=== PATIENT | male | born 1990 | race Caucasian/White ===

== ENCOUNTER 2020-08-07 03:29 | Emergency (ER) | payer MEDICAID, OTHER ==
[2020-08-07 04:19] LABS: BILIRUBIN,URINE NEGATIVE (NEGATIVE); GLUCOSE, URINE (UA) NEGATIVE (NEGATIVE); KETONES,URINE (UA) NEGATIVE (NEGATIVE); LEUKOCYTE ESTERASE, URINE TRACE (NEGATIVE); NITRITE,URINE NEGATIVE (NEGATIVE); OCCULT BLOOD,URINE NEGATIVE (NEGATIVE); PROTEIN,URINE NEGATIVE (NEGATIVE); UROBILINOGEN,URINE 0.2 (NORMAL) E.U./dL (NORMAL)
[2020-08-07] MEDS ORDERED: AZITHROMYCIN 250 MG TABLET PO STA (04:21)
[2020-08-07] MEDS ORDERED: cefTRIAXone 250 MG VIAL IM STA (04:21)
[2020-08-07] MEDS ORDERED: LIDOCAINE 1% 2 ML VIAL MC ONE (04:21)
[2020-08-07 04:23] LABS: CLARITY,URINE CLEAR (CLEAR)
--- NOTE | 2020-08-07 04:24 | ED Physician Documentation ---
History of Present Illness - Stated complaint Stated Complaint: M - Chief complaint Chief Complaint: General - History obtained from History obtained from: Patient - Additonal information Additional information: Patient comes emergency department complaining of white penile discharge for approximately the last week. He states that 1 of his sexual partners was recently treated for gonorrhea. The patient states he has been having random stinging around his urethral meatus and that it stings when he urinates. The patient denies abdominal pain or fevers. He states he is very healthy otherwise. He has not noticed any lesions on his genitalia. No other complaints at this time. Review of Systems Ten Systems: 10 systems reviewed and negative Constitutional: reports: Reviewed and negative Eyes: reports: Reviewed and negative Ears: reports: Reviewed and negative Nose: reports: Reviewed and negative Throat: reports: Reviewed and negative Cardiac: reports: Reviewed and negative Respiratory: reports: Reviewed and negative GI: reports: Reviewed and negative : reports: Dysuria, Discharge Skin: reports: Reviewed and negative Musculoskeletal: reports: Reviewed and negative Neurologic: reports: Reviewed and negative Psychiatric: reports: Reviewed and negative Endocrine: reports: Reviewed and negative Immunocompromised: reports: Reviewed and negative PD PAST MEDICAL HISTORY - Past Medical History Past Medical History: Yes Cardiovascular: None Respiratory: None Endocrine/Autoimmune: None GI: Ulcers : Other HEENT: None Psych: None Musculoskeletal: None Derm: None Other Past Medical History: Hx of STD, chlamydia? - Past Surgical History Past Surgical History: Yes Ortho: Amputation - Present Medications Home Medications: Ambulatory Orders Medication Instructions Recorded Confirmed No Known Home Medications 02/15/15 08/07/20 - Allergies Allergies/Adverse Reactions: Allergies Allergy/AdvReac Type Severity Reaction Status Date / Time No Known Drug Allergies Allergy Verified 08/07/20 03:47 - Social History Does the pt smoke?: No Smoking Status: Former smoker Does the pt drink ETOH?: No Does the pt have substance abuse?: Yes - Immunizations Immunizations are current?: Yes - POLST Patient has POLST: No PD ED PE NORMAL - Vitals Vital signs reviewed: Yes - General General: Alert and oriented X 3, No acute distress - HEENT HEENT: Atraumatic, PERRL, Moist mucous membranes - Neck Neck: Supple, no meningeal sign - Respiratory Respiratory: No respiratory distress - Abdomen Abdomen: Soft, Non tender, Non distended - Male Male : Other (Mild amount of whitish, milky discharge noted from urethral meatus. Patient is circumcised. Normal male genitalia without lesions, discoloration, or other skin changes. Very mild excoriation/desquamation immediately surrounding the urethral meatus.) - Derm Derm: Warm and dry - Extremities Extremities: No deformity - Neuro Neuro: Alert and oriented X 3 - Psych Psych: Normal mood, Normal affect Results - Vitals Vitals: Vital Signs - 24 hr 08/07/20 03:35 Temperature 36.9 C Heart Rate 106 H Respiratory 16 Rate Blood Pressure 131/80 H O2 Saturation 100 Oxygen O2 Source Room air PD MEDICAL DECISION MAKING - ED course Complexity details: reviewed results, re-evaluated patient, considered differential, d/w patient ED course: I discussed with the patient that we will not have the GC chlamydia results back tonight; however, given the patient's girlfriend has recently been treated for gonorrhea, I feel the patient should be treated presumptively for this and chlamydia. Patient is given 250 mg of Rocephin IM and Zithromax 1000 mg p.o. Urinalysis has been performed and is unremarkable. The patient has been counseled not to have sexual relations with any of his partners for the next several days. Departure - Departure Disposition: 01 Home, Self Care Clinical Impression: Urethritis Condition: Stable Instructions: ED STD Male Treated Comments: You have been treated for gonorrhea and chlamydia today. Most likely, given the recent gonorrhea and sexual partner, this is what is causing her symptoms. Swab testing has been done and the results of this should be back in about 48 hours. In the meantime, you should not have sexual relations with any of your partners for at least the next several days. Otherwise, they could be an danger of infection or reinfection from you.
[2020-08-07 04:30] LABS: BACTERIA,URINE Rare /HPF (None Seen); RBC,URINE None Seen /HPF (0-5); SQUAMOUS EPITHELIAL CELL,UR RARE Squamous (<= Few)
[2020-08-07 05:11] VITALS: BP 127/73
== END 2020-08-07 05:11 | disposition home or self-care (01) ==
LOC: ED 03:29
DX: A54.01 Gonococcal cystitis and urethritis, unspecified (principal); Z87.891 Personal history of nicotine dependence
CPT/HCPCS: 81001; 87086; 87491; 87591; 96372; 99283; 99284; A9270; 81003; 87661

== ENCOUNTER 2023-04-04 11:02 | Emergency (ER) | payer OTHER ==
[2023-04-04 11:37] LABS: BASOPHILS % (AUTO) 0.4 %; EOSINOPHILS # (AUTO) 0.1 10^3/uL (0.0-0.7); EOSINOPHILS % (AUTO) 1.3 %; HCT - HEMATOCRIT 44.6 % (42.0-52.0); HGB - HEMOGLOBIN 14.7 g/dL (14.0-18.0); LYMPHOCYTES # (AUTO) 1.4 10^3/uL (1.5-3.5); LYMPHOCYTES % (AUTO) 19.2 %; MEAN CORPUSCULAR HEMOGLOBIN 28.9 pg (27.0-31.0); MEAN CORPUSCULAR VOLUME 87.8 fL (80.0-94.0); MEAN PLATELET VOLUME 8.9 fL (7.4-11.4); MONOCYTES # (AUTO) 0.6 10^3/uL (0.0-1.0); NEUTROPHILS # (AUTO) 5.1 10^3/uL (1.5-6.6); PLT - PLATELET COUNT 289 10^3/uL (130-450); RED BLOOD COUNT 5.08 10^6/uL (4.70-6.10); RED CELL DISTRIBUTION WIDTH 12.9 % (12.0-15.0); WHITE BLOOD COUNT 7.1 x10^3/uL (4.8-10.8)
[2023-04-04 11:49] LABS: ALBUMIN 4.2 g/dL (3.2-5.5); ALBUMIN/GLOBULIN RATIO 1.4 (1.0-2.2); BILIRUBIN,TOTAL 0.6 mg/dL (0.2-1.0); POTASSIUM 3.8 mmol/L (3.5-5.0); TOTAL PROTEIN 7.3 g/dL (6.7-8.2)
[2023-04-04 12:12] LABS: BILIRUBIN,URINE NEGATIVE (NEGATIVE); CLARITY,URINE CLEAR (CLEAR); GLUCOSE, URINE (UA) NEGATIVE (NEGATIVE); KETONES,URINE (UA) NEGATIVE (NEGATIVE); LEUKOCYTE ESTERASE, URINE NEGATIVE (NEGATIVE); NITRITE,URINE NEGATIVE (NEGATIVE); OCCULT BLOOD,URINE NEGATIVE (NEGATIVE); PROTEIN,URINE NEGATIVE (NEGATIVE); UROBILINOGEN,URINE 1 (NORMAL) E.U./dL (NORMAL)
[2023-04-04] MEDS ORDERED: SUCRALFATE 1 GM/10 ML UDC PO STA (12:25)
[2023-04-04] MEDS ORDERED: MAG HYDROX/AL HYDROX/SIMETH 30 ML UDC PO STA (12:25)
[2023-04-04] MEDS ORDERED: MORPHINE 2 MG/ML CARPUJECT IVP STA (12:25)
[2023-04-04] MEDS ORDERED: FAMOTIDINE 20 MG TABLET PO STA (12:25)
[2023-04-04] MEDS ORDERED: DROPERIDOL 5 MG/2 ML VIAL IVP STA (12:29)
--- NOTE | 2023-04-04 12:32 | ED Physician Documentation ---
PD HPI ABD PAIN - Stated complaint Stated Complaint: STOMACH PX, - Chief complaint Chief Complaint: Abd Pain - History obtained from History obtained from: Patient - History of Present Illness Timing - onset: Yesterday Timing - duration: Days (2) Timing - details: Gradual onset Pain level max: 8 Pain level now: 8 Quality: Aching, Pain Location: Epigastric Radiation: No: Chest, , Lower back, Left flank, Left shoulder, Right flank, Right shoulder, Upper back Improved by: Other (nothing) Worsened by: Eating Associated symptoms: Nausea. No: Fever, Vomiting, Hematemesis, Diarrhea, Constipation, Melena, Hematochezia, Dysuria, Hematuria, Chest pain, Dizzy Recently seen: Not recently seen Review of Systems Constitutional: denies: Fever, Chills GI: denies: Vomiting, Diarrhea, Hematemesis : denies: Dysuria, Frequency, Hesitancy Skin: denies: Rash Musculoskeletal: denies: Neck pain, Back pain Neurologic: denies: Headache PD PAST MEDICAL HISTORY - Past Medical History Cardiovascular: None Respiratory: None Endocrine/Autoimmune: None GI: Ulcers : Other HEENT: None Psych: None Musculoskeletal: None Derm: None - Past Surgical History Past Surgical History: Yes Ortho: Amputation - Present Medications Home Medications: Ambulatory Orders Medication Instructions Recorded Confirmed Esomeprazole Magnesium [Nexium] 40 mg PO DAILY #30 cap 04/04/23 Famotidine [Pepcid] 20 mg PO BID #60 tablet 04/04/23 Ondansetron Odt [Zofran] 4 mg TL Q6H PRN #10 tablet 04/04/23 - Allergies Allergies/Adverse Reactions: Allergies Allergy/AdvReac Type Severity Reaction Status Date / Time No Known Drug Allergies Allergy Verified 04/04/23 11:13 - Social History Does the pt smoke?: No Smoking Status: Former smoker Does the pt drink ETOH?: No Does the pt have substance abuse?: Yes - Immunizations Immunizations are current?: Yes - POLST Patient has POLST: No PD ED PE NORMAL - Vitals Vital signs reviewed: Yes - General General: Alert and oriented X 3, No acute distress - HEENT HEENT: Moist mucous membranes - Neck Neck: Supple, no meningeal sign - Cardiac Cardiac: RRR, Strong equal pulses - Respiratory Respiratory: No respiratory distress, Clear bilaterally - Abdomen Abdomen: Soft, Non distended, Other (TTP epigastric without peritoneal) - Back Back: No CVA TTP, No spinal TTP - Derm Derm: Warm and dry, No rash - Extremities Extremities: No edema - Neuro Neuro: Alert and oriented X 3 - Psych Psych: Normal mood, Normal affect Results - Vitals Vitals: Vital Signs - 24 hr 04/04/23 04/04/23 04/04/23 11:13 12:58 14:00 Temperature 36.4 C L Heart Rate 70 66 72 Respiratory 18 15 13 Rate Blood Pressure 142/97 H 133/92 H 124/79 O2 Saturation 100 99 98 04/04/23 16:07 Temperature Heart Rate 82 Respiratory 10 L Rate Blood Pressure 129/91 H O2 Saturation 99 Oxygen O2 Source Room air - Labs Labs: Laboratory Tests 04/04/23 04/04/23 04/04/23 11:28 11:29 11:29 WBC 7.1 RBC 5.08 Hgb 14.7 Hct 44.6 MCV 87.8 MCH 28.9 MCHC 33.0 RDW 12.9 Plt Count 289 MPV 8.9 Neut # (Auto) 5.1 Lymph # (Auto) 1.4 L [place] # (Auto) 0.6 Eos # (Auto) 0.1 Baso # (Auto) 0.0 Absolute Nucleated RBC 0.00 Nucleated RBC % 0.0 Sodium 140 Potassium 3.8 Chloride 103 Carbon Dioxide 30 Anion Gap 7.0 BUN 11 Creatinine 1.0 Estimated GFR (MDRD) 86 L Glucose 111 H Calcium 9.0 Total Bilirubin 0.6 AST 18 ALT 18 Alkaline Phosphatase 64 Total Protein 7.3 Albumin 4.2 Globulin 3.1 Albumin/Globulin Ratio 1.4 Lipase 59 H Urine Color YELLOW Urine Clarity CLEAR Urine pH 7.0 Ur Specific [place] 1.015 Urine Protein NEGATIVE Urine Glucose (UA) NEGATIVE Urine Ketones NEGATIVE Urine Occult Blood NEGATIVE Urine Nitrite NEGATIVE Urine Bilirubin NEGATIVE Urine Urobilinogen 1 (NORMAL) Ur Leukocyte Esterase NEGATIVE Ur Microscopic Review NOT INDICATED Urine Culture Comments NOT INDICATED - Rads (name of study) CT abd/pelvis Relevant Findings:: Final report received, See rad report PD Medical Decision Making - ED course Complexity details: reviewed results, re-evaluated patient, considered differential, d/w patient ED course: 33-year-old male with epigastric abdominal pain. Likely gastritis, possible an early gastroenteritis. He was given IV morphine, Pepcid, Maalox and Carafate. Also given a dose of droperidol. Symptoms fully resolved. Tolerating p.o. without difficulty. No acute findings on CT scan. CBC and ER abdominal panel did not show any significant abnormalities. We will have the patient follow-up with his PCP for further care. Will place on a PPI, H2 sindy for home. We will also prescribe Zofran for home. Patient counseled regarding signs and symptoms for which I believe and urgent re-evaluation would be necessary. Patient with good understanding of and agreement to plan and is comfortable going home at this time This document was made in part using voice recognition software. While efforts are made to proofread this document, sound alike and grammatical errors may occur. IMPRESSION: 1. No acute intra-abdominal findings. The appendix is not visualized; however there are no ancillary findings to suggest acute appendicitis. 2. Somewhat limited study secondary to motion artifact and streak artifact. Departure - Departure Disposition: Home, Self Care Clinical Impression: Abdominal pain Qualifiers: Abdominal location: epigastric Qualified Code(s): R10.13 - Epigastric pain Condition: Good Instructions: ED PUD Vs Gastritis, ED Abdominal Pain Unkn Cause Male Follow-Up: your,doctor in 1week [Other] Prescriptions: Esomeprazole Magnesium [Nexium] 40 mg PO DAILY #30 cap Famotidine [Pepcid] 20 mg PO BID #60 tablet Ondansetron Odt [Zofran] 4 mg TL Q6H PRN #10 tablet PRN Reason: Nausea / Vomiting Comments: Your prescriptions were sent to [facility] in [place]. Please eat a very bland diet. Drink plenty of fluids, avoid coffee, alcohol, energy drinks as this may irritate your stomach as well. Your CT scan and laboratory testing did not show any acute abnormalities today. Please return if you worsen. Discharge Date/Time: 04/04/23 16:19
[2023-04-04] MEDS ORDERED: iohexoL-300 100 ML VIAL ONE (12:48)
--- NOTE | 2023-04-04 15:06 | CT Report ---
PROCEDURE: ABDOMEN/PELVIS W INDICATIONS: epigastric abd pain CONTRAST: 100ml Omnipaque 300 TECHNIQUE: After the administration of intravenous contrast, 5 mm thick sections acquired from the diaphragms to the symphysis. 5 mm thick coronal and sagittal reformats were acquired. For radiation dose reducti on, the following was used: automated exposure control, adjustment of mA and/or kV according to funmi ent size. COMPARISON: FINDINGS: Image quality: Motion artifact and streak artifact from metallic jewelry on the bilateral wrists limi ts evaluation. Lung bases and heart: Unremarkable. Liver: No solid mass. Gallbladder and biliary tree: Unremarkable. Spleen: No splenomegaly. Pancreas: No pancreatic ductal dilation. Adrenals: No adrenal nodule. Kidneys and ureters: No hydronephrosis. No renal cystic lesion which requires follow up. No solid mas s. Bowel and peritoneum: No bowel distension. No pathologic free fluid. The appendix is not visualized; however there is no discrete right lower quadrant fluid or fat stranding to suggest acute appendiciti s. Lymph nodes: No central or retroperitoneal adenopathy. Vessels: No infrarenal aortic aneurysm. PELVIS Reproductive organs: Unremarkable. Bladder: No abnormal wall thickening, accounting for underdistension. Pelvic lymph nodes: No pelvic adenopathy by size criteria. Bones: No aggressive osseous abnormality. Other: No significant ventral or inguinal hernia. IMPRESSION: 1. No acute intra-abdominal findings. The appendix is not visualized; however there are no ancillary findings to suggest acute appendicitis. 2. Somewhat limited study secondary to motion artifact and streak artifact. Reviewed by: Taylor Rooney MD on 04/04/2023 3:05 PM PDT Approved by: Taylor Rooney MD on 04/04/2023 3:05 PM PDT Station ID: [id number]
[2023-04-04 16:08] VITALS: BP 129/91
[2023-04-04] MEDS ORDERED: iohexoL-300 100 ML VIAL IVP ONE (16:48)
== END 2023-04-04 16:19 | disposition home or self-care (01) ==
LOC: ED 11:02
DX: R10.13 Epigastric pain (principal); Z87.891 Personal history of nicotine dependence
CPT/HCPCS: 36415; 74177; 80053; 81003; 83690; 85025; 96374; 96375; 99284; A9270; Q9967; 81001; 87086

== ENCOUNTER 2024-04-01 14:23 | Emergency (ER) | payer OTHER ==
[2024-04-01 15:10] LABS: BASOPHILS % (AUTO) 0.5 %; EOSINOPHILS # (AUTO) 0.1 10^3/uL (0.0-0.7); EOSINOPHILS % (AUTO) 0.8 %; HCT - HEMATOCRIT 50.8 % (42.0-52.0); HGB - HEMOGLOBIN 16.4 g/dL (14.0-18.0); LYMPHOCYTES # (AUTO) 0.6 10^3/uL (1.5-3.5); MEAN CORPUSCULAR HEMOGLOBIN 28.4 pg (27.0-31.0); MEAN CORPUSCULAR HGB CONC 32.3 g/dL (32.0-36.0); MEAN CORPUSCULAR VOLUME 87.9 fL (80.0-94.0); MEAN PLATELET VOLUME 9.1 fL (7.4-11.4); MONOCYTES # (AUTO) 0.7 10^3/uL (0.0-1.0); MONOCYTES % (AUTO) 7.6 %; NEUTROPHILS # (AUTO) 7.5 10^3/uL (1.5-6.6); NEUTROPHILS % (AUTO) 83.9 %; PLT - PLATELET COUNT 277 10^3/uL (130-450); RED BLOOD COUNT 5.78 10^6/uL (4.70-6.10); RED CELL DISTRIBUTION WIDTH 13.2 % (12.0-15.0); WHITE BLOOD COUNT 8.9 x10^3/uL (4.8-10.8)
[2024-04-01 15:17] LABS: ALBUMIN 4.9 g/dL (3.2-5.5); ALBUMIN/GLOBULIN RATIO 1.8 (1.0-2.2); ALKALINE PHOSPHATASE 59 IU/L (42-121); ALT ALANINE AMINOTRANSFERASE 15 IU/L (10-60); AST ASPARTATE AMINOTRANSFERASE 17 IU/L (10-42); BUN - BLOOD UREA NITROGEN 24 mg/dL (6-20); CALCIUM 9.9 mg/dL (8.5-10.3); CARBON DIOXIDE - CO2 30 mmol/L (21-32); CHLORIDE 100 mmol/L (101-111); CREATININE 1.2 mg/dL (0.6-1.3); GFR - MDRD 69 (>89); GLUCOSE 132 mg/dL (74-104); LIPASE < 10 U/L (11-82); POTASSIUM 4.3 mmol/L (3.5-4.5); SODIUM 137 mmol/L (135-145); TOTAL PROTEIN 7.7 g/dL (6.4-8.9)
[2024-04-01 18:48] VITALS: BP 127/91; O2SAT 98
--- NOTE | 2024-04-01 18:52 | ED Physician Documentation ---
PD HPI ABD PAIN - Stated complaint Stated Complaint: STOMACH PX/SHAKING - Chief complaint Chief Complaint: Abd Pain - Additional information Additional information: 34-year-old male presents emerged department for abdominal pain that started this morning. Patient says that he had spontaneous sudden onset abdominal pain he describes as all over and he says now that he just has pain all over his body difficult gathering history. 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 Unsure if he send any recent fevers chills no nausea or vomiting. PD PAST MEDICAL HISTORY - Past Medical History Cardiovascular: None Respiratory: None Endocrine/Autoimmune: None GI: Ulcers : Other HEENT: None Psych: None Musculoskeletal: None Derm: None - Past Surgical History Past Surgical History: Yes Ortho: Amputation - Present Medications Home Medications: Ambulatory Orders Medication Instructions Recorded Confirmed Esomeprazole Magnesium [Nexium] 40 mg PO DAILY #30 cap 04/04/23 Famotidine [Pepcid] 20 mg PO BID #60 tablet 04/04/23 Ondansetron Odt [Zofran] 4 mg TL Q6H PRN #10 tablet 04/04/23 - Allergies Allergies/Adverse Reactions: Allergies Allergy/AdvReac Type Severity Reaction Status Date / Time No Known Drug Allergies Allergy Verified 04/01/24 14:40 - Social History Does the pt smoke?: No Smoking Status: Never smoker Does the pt drink ETOH?: No Does the pt have substance abuse?: Yes - Immunizations Immunizations are current?: Yes - POLST Patient has POLST: No PD ED PE NORMAL - Vitals Vital signs reviewed: Yes - General General: Alert and oriented X 3 - HEENT HEENT: Atraumatic - Cardiac Cardiac: RRR, Other (tachycardic) - Respiratory Respiratory: No respiratory distress - Abdomen Abdomen: Normal bowel sounds, Soft, Non distended, No organomegaly, Other (Okay perfect thank you so much generalized abdominal tenderness, no rebound tenderness no peritonitis.) - Derm Derm: Normal color, Warm and dry, No rash Results - Vitals Vitals: Vital Signs - 24 hr 04/01/24 04/01/24 18:40 20:00 Temperature 37.4 C Heart Rate 97 Respiratory 16 16 Rate Blood Pressure 127/91 H O2 Saturation 98 Oxygen O2 Source Room air - Labs Labs: Laboratory Tests 05/27/24 05/27/24 15:00 15:00 WBC 8.9 RBC 5.78 Hgb 16.4 Hct 50.8 MCV 87.9 MCH 28.4 MCHC 32.3 RDW 13.2 Plt Count 277 MPV 9.1 Neut # (Auto) 7.5 H Lymph # (Auto) 0.6 L [place] # (Auto) 0.7 Eos # (Auto) 0.1 Baso # (Auto) 0.0 Absolute Nucleated RBC 0.00 Nucleated RBC % 0.0 Sodium 137 Potassium 4.3 Chloride 100 L Carbon Dioxide 30 Anion Gap 7.0 BUN 24 H Creatinine 1.2 Estimated GFR (MDRD) 69 L Glucose 132 H Calcium 9.9 Total Bilirubin 1.0 AST 17 ALT 15 Alkaline Phosphatase 59 Total Protein 7.7 Albumin 4.9 Globulin 2.8 Albumin/Globulin Ratio 1.8 Lipase < 10 L PD Medical Decision Making - ED course ED course: 34-year-old male presents emerged department for abdominal pain. Labs are complete for further evaluation no leukocytosis no anemia, he does appear to have slightly elevated BUN at 24, GFR 69, creatinine 1.2 this is most likely due to dehydration. Normal lipase. Unsure what is causing patient's abdominal pain we attempted to get a urinalysis from him but patient declined to give us any urine we also attempted to do a CT scan of patient's abdomen but unfort unately patient said that he needed to go to work and did not want to wait around for CT scan. Patient said that he needed to get to work at 10:00 declined to have any further workup or imaging. Patient does appear to be decisional he does appear to be coming off of methamphetamines but he has been pretty calm and cooperative during his ER visit. He was given a GI cocktail in the emergency department with little to no relief. But again patient declines any further workup. Patient was informed if he changes his mind and would like to come back into the emergency department for further evaluation he is more than welcome to. Departure - Departure Disposition: 01 Home, Self Care Clinical Impression: Abdominal pain Instructions: Abdominal Pain Comments: Thank you for trusting us with your care I did suggest doing an abdominal CT but you are declining to do so at this point in time if you change your mind and want to come back in for an abdominal pelvis CT feel free to check back into the emergency department for further evaluation. Forms: PCP List Discharge Date/Time: 04/01/24 20:35
[2024-04-01] MEDS ORDERED: iohexoL-300 100 ML VIAL ONE (19:28)
[2024-04-01] MEDS: ACETAMINOPHEN 325 MG TABLET PO STA (19:45)
[2024-04-01] MEDS: MAG HYDROX/AL HYDROX/SIMETH 30 ML UDC PO STA (19:45)
[2024-04-01] MEDS: LIDOCAINE VISCOUS 2% 15 ML UDC MM STA (19:45)
== END 2024-04-01 20:35 | disposition home or self-care (01) ==
LOC: ED 14:23
DX: R10.84 Generalized abdominal pain (principal); E86.0 Dehydration; Z79.899 Other long term (current) drug therapy
CPT/HCPCS: 36415; 80053; 83690; 85025; 99283